=== PATIENT | male | born 1940 | race Caucasian/White ===

== ENCOUNTER 2018-01-24 06:23 | Day surgery (SDC) | payer MEDICARE, OTHER ==
[2018-01-22 13:13] VITALS: BMI 27.3
[2018-01-24] MEDS ORDERED: LIDOCAINE HCL/PF 2% SDV 5ML VIAL ONE (07:15)
[2018-01-24] MEDS ORDERED: PROPOFOL 20 ML ONE (07:15)
[2018-01-24] MEDS ORDERED: SUCCINYLCHOLINE CHLORIDE 200 MG/10 ML VIAL ONE (07:15)
[2018-01-24] MEDS ORDERED: ceFAZolin SODIUM 1 GM VIAL ONE (07:15)
[2018-01-24] MEDS ORDERED: MIDAZOLAM HCL 2 MG/2 ML SINGLE DOSE VIAL ONE (07:15)
[2018-01-24] MEDS ORDERED: BUPIVACAINE HCL/PF 0.5% (5MG/ML) 10 ML VIAL ONE (07:33)
[2018-01-24] MEDS ORDERED: LIDOCAINE 1%/EPI 1:100000 (20 ML MULTI DOSE VIAL) ONE (07:33)
--- NOTE | 2018-01-24 07:53 | HP ---
Admitting History and Physical - Primary Care Physician PCP: Bola Alcaraz (Assistant Tenn[employer]) - Admission Chief Complaint: Pain in the dorsum of the left first metatarsal head area due to shoe pressure. - Advance Directives Advance Directives: Yes: Living Will, Health Care Proxy - Smoking History Smoking history: Never smoked Have you smoked in the past 12 months: No Aproximately how many cigarettes per day: 0 - Alcohol/Substance Use Hx Alcohol Use: Yes (occ) Home Medications - Allergies Allergies/Adverse Reactions: Allergies Allergy/AdvReac Type Severity Reaction Status Date / Time No Known Allergies Allergy Verified 01/24/18 07:08 - Home Medications Home Medications: Ambulatory Orders Lisinopril [Prinivil] 10 mg PO DAILY 07/06/12 Amlodipine Besylate/Benazepril [Lotrel 10-20 mg Capsule] 1 cap PO DAILY Ascorbic Acid [Vitamin C] 1,000 mg PO DAILY 01/24/18 Atorvastatin Ca [Lipitor] 20 mg PO HS 01/24/18 Folic Acid 1 mg PO DAILY 01/24/18 Glucosamine Sulfate Dipot Chlr [Glucosamine] 1,000 mg PO DAILY 01/24/18 Multivitamin [One Daily] 1 each PO DAILY 01/24/18 Physical Examination Vital Signs: Vital Signs Temperature 97.6 F 01/24/18 07:06 Pulse Rate 66 01/24/18 07:06 Respiratory Rate 20 01/24/18 07:06 Blood Pressure 140/90 01/24/18 07:06 O2 Sat by Pulse Oximetry (%) 97 01/24/18 07:05 Musculoskeletal: Yes: Other (left 1st metatarsal head dorsally shows voluminous dorsal exostosis with no cutaneous symptoms) Assessment/Plan Assessment Left hallux limitus secondary to dorsal metatarsal head exostosis Plan Removal of bone spurs to reduce pressure in shoes. hallux limitus will not be directly addressed at patient request
[2018-01-24] MEDS ORDERED: ceFAZolin SODIUM 1 GM VIAL IVPB ONE (08:20)
[2018-01-24] MEDS ORDERED: LIDOCAINE 1%/EPI 1:100000 (20 ML MULTI DOSE VIAL) IJ ONE (08:31)
[2018-01-24] MEDS ORDERED: BUPIVACAINE HCL/PF 0.5% (5MG/ML) 10 ML VIAL IJ ONE (08:31)
[2018-01-24] MEDS ORDERED: oxyCODONE HCL 5 MG TABLET PO PRN (08:36)
[2018-01-24] MEDS ORDERED: ONDANSETRON 4 MG/2 ML VIAL IVPUSH PRN (08:36)
--- NOTE | 2018-01-24 08:37 | HP ---
Admitting History and Physical - Admission Chief Complaint: Pain to left toe History of Present Illness: This is a 77 year old male with pmhx HTN, HLD, b/l hernia repair, R/L rotator cuff surgery, rhinoplasty presented to [employer] office for left foot bunion discomfort. PT states he is unable to wear his shoes and the pressure inside his shoes causes increased pain. Pt denies sob, cp, abd pain, n/v, lower ext swelling, weakness, fever, chills. History Source: Patient Limitations to Obtaining History: No Limitations - Past Medical History Cardiovascular: Yes: HTN, Hyperlipdemia - Past Surgical History Past Surgical History: Yes: Hernia Repair Additional Past Surgical History: rhinoplasty, rotator cuff surgery b/l - Advance Directives Advance Directives: Yes: Living Will, Health Care Proxy - Smoking History Smoking history: Never smoked Have you smoked in the past 12 months: No Aproximately how many cigarettes per day: 0 - Alcohol/Substance Use Hx Alcohol Use: Yes (occ) History of Substance Use: reports: None - Social History Usual Living Arrangement: Yes: With Spouse ADL: Independent Occupation: construction History of Recent Travel: Yes ([facility] 2 weeks ago ) Home Medications - Allergies Allergies/Adverse Reactions: Allergies Allergy/AdvReac Type Severity Reaction Status Date / Time No Known Allergies Allergy Verified 01/24/18 07:08 - Home Medications Home Medications: Ambulatory Orders Lisinopril [Prinivil] 10 mg PO DAILY 07/06/12 Amlodipine Besylate/Benazepril [Lotrel 10-20 mg Capsule] 1 cap PO DAILY Ascorbic Acid [Vitamin C] 1,000 mg PO DAILY 01/24/18 Atorvastatin Ca [Lipitor] 20 mg PO HS 01/24/18 Folic Acid 1 mg PO DAILY 01/24/18 Glucosamine Sulfate Dipot Chlr [Glucosamine] 1,000 mg PO DAILY 01/24/18 Multivitamin [One Daily] 1 each PO DAILY 01/24/18 Review of Systems - Review of Systems Constitutional: reports: No Symptoms Eyes: reports: No Symptoms HENT: reports: No Symptoms Neck: reports: No Symptoms Cardiovascular: reports: No Symptoms Respiratory: reports: No Symptoms Gastrointestinal: reports: No Symptoms Genitourinary: reports: No Symptoms Musculoskeletal: reports: Extremity Pain (L foot bunion pain) Integumentary: reports: No Symptoms Neurological: reports: No Symptoms Endocrine: reports: No Symptoms Hematology/Lymphatic: reports: No Symptoms Psychiatric: reports: No Symptoms Physical Examination Vital Signs: Vital Signs Temperature 97.6 F 01/24/18 07:06 Pulse Rate 66 01/24/18 07:06 Respiratory Rate 20 01/24/18 07:06 Blood Pressure 140/90 01/24/18 07:06 O2 Sat by Pulse Oximetry (%) 97 01/24/18 07:05 Constitutional: Yes: No Distress Eyes: Yes: Conjunctiva Clear HENT: Yes: Atraumatic Neck: Yes: Trachea Midline Cardiovascular: Yes: Regular Rate and Rhythm, S1, S2 Respiratory: Yes: Regular, CTA Bilaterally Gastrointestinal: Yes: Normal Bowel Sounds, Soft Renal/: Yes: WNL Musculoskeletal: Yes: WNL Extremities: Yes: Other (Left foot bunion, tender to palpation) Edema: No Peripheral Pulses WNL: Yes Integumentary: Yes: WNL Neurological: Yes: Alert, Oriented, Cran Nerves II-XII Intact ...Motor Strength: WNL Psychiatric: Yes: WNL Problem List - Problems (1) HTN (hypertension) Code(s): I10 - ESSENTIAL (PRIMARY) HYPERTENSION (2) HLD (hyperlipidemia) Code(s): E78.5 - HYPERLIPIDEMIA, UNSPECIFIED Assessment/Plan Assessment: 77 year old male with htn, hld here for L bunion surgery Plan: 1. Left Hallux repair - Surgery per podiatry 2. HTN - Lisinopril 10mg daily - Lotrel 1 tab daily Visit type - Emergency Visit Emergency Visit: No - New Patient This patient is new to me today: Yes Date on this admission: 01/24/18 - Critical Care Critical Care patient: No Hospitalist Screening - Colonoscopy Questionnaire Colonoscopy Questionnaire: Colonoscopy Questionnaire - Patient: 50 - 75 years old and never had a screening colonoscopy: Unknown History of colon or rectal polyps, or CA: Unknown History of IBD, Crohn's disease or UC: Unknown History of abdominal radiation therapy as a child: Unknown - Relative: 1 with colon or rectal CA, or polyps at age 60 or younger: Unknown Colon or rectal CA diagnosed at age 45 or younger: Unknown Multiple relatives with colon or rectal CA: Unknown - Outcome: Screening Result: Negative Screen
[2018-01-24] MEDS ORDERED: LACTATED RINGERS SOLUTION 1,000 ML IV SCH (08:45)
--- NOTE | 2018-01-24 09:35 | OP ---
DATE OF OPERATION: 01/24/2018 SURGEON: Bola Alcaraz DPM PREOPERATIVE DIAGNOSIS: Left hallux rigidus with dorsal bone exostosis. POSTOPERATIVE DIAGNOSIS: Left hallux rigidus with dorsal bone exostosis. PLANNED PROCEDURE: Removal of dorsal exostosis from the left first metatarsophalangeal joint. DESCRIPTION OF PROCEDURE: Under fractional anesthesia with Betadine scrub and solution x2, the patient was draped using sterile technique. Inspection of the left foot showed a large bulbous appearance of the first metatarsal head dorsally. Using a No. 15 surgical blade, a linear longitudinal incision was made on the dorsomedial aspect of the left foot over the first metatarsophalangeal joint. The incision was deepened through fascia and retracted. The joint capsule was identified covering the bone hyperostosis. This was longitudinally incised and then reflected medially and laterally from the hyperostosis. Extensive dissection of the first metatarsal joint capsule was not performed because the intention was simply to expose the hyperostosis. Using a bone saw, the hyperostosis was removed, and then the dorsal aspect of the left first metatarsal head was rasped smooth with a bone rasp. The wound was irrigated with sterile saline and then the joint inspected for any bony prominence. None was noted on the medial and lateral side, and the base of the proximal phalanx similarly did not have any bony hyperostosis worth dissecting. The joint capsule was then reapproximated and closed with 3-0 Vicryl suture, superficial fascia closed in similar fashion after repair of the extensor danielle apparatus with the same 3-0 Vicryl suture, and then the skin was reapproximated and closed with 3-0 nylon running interlocking suture. A dry sterile dressing was applied to the left foot. The patient tolerated surgical procedure well and left the operating room stable, alert, awake, and in no pain. JOSE ANGEL PULIDO/[id number]
[2018-01-24 11:24] VITALS: BP 133/74; PULSE 64; TEMP 97.9
--- NOTE | 2018-01-27 10:44 | PATH ---
Surgical Pathology Report Patient Name: KRYSTLE ELIZABETH [facility]. Rec. #: [id number] /Age/Gender: 1940 (Age: 77) / M Account: [id number] Location: [facility] SURGICAL Taken: 01/24/2018 Received: 01/24/2018 Reported: 01/27/2018 Physicians: Bola Alcaraz M.D. Specimen(s) Received BONE FROM 1ST METATARSAL LEFT FOOT Clinical History Hallux rigidus left foot Final Diagnosis BONE, FOOT, FIRST METATARSAL, LEFT, EXCISION: BONE WITH DEGENERATIVE CHANGES. Electronically Signed Yanira Dunbar M.D. Gross Description Received in formalin labeled "bone from first metatarsal left foot," are 2 chavez-yellow, irregular portions of bone measuring 1.4 x 1.0 x 0.4 cm and 2.0 x 1.1 x 0.4 cm. [employer] sections are submitted in one cassette, following decalcification. /01/24/2018 saudi01/24/2018
== END 2018-01-24 11:30 | disposition home or self-care (01) ==
LOC: JASU-SURG 06:23
PROVIDERS: ATTEND Podiatrist Foot Surgery
PROC: 0QBR0ZZ Excision of Left Toe Phalanx, Open Approach (ICD-10-PCS; principal; 2018-01-24 08:00)
DX: M20.22 Hallux rigidus, left foot (principal); M89.9 Disorder of bone, unspecified; M21.612 Bunion of left foot
CPT/HCPCS: 88304-TC; 88311-TC; 94760